=== PATIENT | male | born 1970 | race Caucasian/White ===

== ENCOUNTER 2017-09-26 17:21 | Inpatient (IN) | payer MEDICAID, OTHER ==
[~2017-09-26] VITALS: Ht 175.3 cm; Wt 90.7 kg
[2017-09-26 17:21] VITALS: BP_SYST 148
[~2017-09-26 17:21] MED LIST: AMOX-423 PO; METR500T PO
[2017-09-26] MEDS ORDERED: LEVALBUTEROL HCL 0.63 MG/3 ML VIAL.NEB INH ONE (17:30)
[2017-09-26 17:57] LABS: BASOPHILS # (AUTO) 0.1 K/uL (0.0-0.2); EOSINOPHILS % (AUTO) 0.4 % (0.0-4.0); HEMOGLOBIN 15.4 g/dL (14.0-18.0); LYMPHOCYTES # (AUTO) 2.2 K/uL (1.0-5.5); MEAN CORPUSCULAR HEMOGLOBIN 31 pg (27-31); RED CELL DISTRIBUTION WIDTH 13.5 % (9.0-15.0)
[2017-09-26 17:59] LABS: BASOPHILS % (AUTO) 0.6 % (0.0-2.0); HEMATOCRIT 47.1 % (36-54); LYMPHOCYTES % (AUTO) 18.2 % (20.5-51.5); MEAN CORPUSCULAR HGB CONC 33 % (32-36); MEAN CORPUSCULAR VOLUME 95 fL (79.0-98.0); MONOCYTES # (AUTO) 0.6 K/uL (0.0-1.0); MONOCYTES % (AUTO) 5.1 % (1.7-9.3); NEUTROPHILS # (AUTO) 9.2 K/uL (1.8-7.7); NEUTROPHILS % (AUTO) 75.7 % (40.0-70.0); PLATELET COUNT (AUTO) 261 K/uL (130-430); RED BLOOD CELL COUNT(AUTO) 4.96 MIL/uL (4.2-6.2); WHITE BLOOD COUNT (AUTO) 12.1 K/uL (4.8-10.8)
[2017-09-26 18:19] LABS: CALCIUM 9.1 mg/dL (8.4-11.0); CREATININE 0.93 mg/dL (0.55-1.30)
[2017-09-26 18:29] LABS: ALBUMIN 3.5 g/dL (3.4-4.8); TOTAL BILIRUBIN 2.4 mg/dL (0.0-1.0)
[2017-09-26] MEDS ORDERED: KETOROLAC TROMETHAMINE 30 MG VIAL IVP ONE (18:45)
[2017-09-26] MEDS ORDERED: LORazepam 2 MG/ML VIAL (FOR ER USE) IVP ONE (18:45)
[2017-09-26] MEDS ORDERED: cefTRIAXone 1 GM in D5W 50 ML IV ONE (19:45)
[2017-09-26] MEDS ORDERED: cefTRIAXone 1 GM VIAL ONE (20:03)
[2017-09-26 20:34] LABS: LACTATE DEHYDROGENASE 927 U/L (85-227); LIPASE 51 U/L (73-393)
[2017-09-26 20:34] LABS: BARBITURATE, URINE NEGATIVE (NEG <=200); BENZODIAZEPINE, URINE NEGATIVE (NEG <=150); CANNABINOID, URINE POSITIVE (NEG <=50); COCAINE, URINE NEGATIVE (NEG <=150); METHAMPHETAMINES SCREEN,URINE POSITIVE (NEG <=500); OPIATE, URINE POSITIVE (NEG <=100); PHENCYCLIDINE SCREEN,URINE NEGATIVE (NEG <=25); UR TRICYCLIC ANTIDEPRESSANTS NEGATIVE (NEG <=300); URINE AMPHETAMINE POSITIVE (NEG <=500); URINE METHADONE NEGATIVE (NEG <=200); URINE OXYCODONE SCREEN NEGATIVE (NEG <=100); URINE PROPOXYPHENE SCREEN NEGATIVE (NEG <=300)
[2017-09-26 20:48] VITALS: BP_SYST 150
[2017-09-26] MEDS ORDERED: ACETAMINOPHEN 325 MG TABLET PO PRN (22:30)
[2017-09-26 23:50] VITALS: BP_SYST 150
[2017-09-26] MEDS: ALBUTEROL SULFATE 0.083% 2.5 MG/3 ML VIAL.NEB INH SCH (23:52)
[2017-09-27 00:20] VITALS: BP_SYST 143
[2017-09-27 07:06] LABS: BASOPHILS % (AUTO) 0.2 % (0.0-2.0); EOSINOPHILS # (AUTO) 0.1 K/uL (0.0-0.4); EOSINOPHILS % (AUTO) 0.6 % (0.0-4.0); HEMATOCRIT 46.6 % (36-54); HEMOGLOBIN 15.2 g/dL (14.0-18.0); LYMPHOCYTES # (AUTO) 1.4 K/uL (1.0-5.5); LYMPHOCYTES % (AUTO) 13.2 % (20.5-51.5); MEAN CORPUSCULAR HEMOGLOBIN 31 pg (27-31); MEAN CORPUSCULAR HGB CONC 33 % (32-36); MEAN CORPUSCULAR VOLUME 95 fL (79.0-98.0); MONOCYTES # (AUTO) 0.7 K/uL (0.0-1.0); MONOCYTES % (AUTO) 6.8 % (1.7-9.3); NEUTROPHILS # (AUTO) 8.4 K/uL (1.8-7.7); NEUTROPHILS % (AUTO) 79.2 % (40.0-70.0); PLATELET COUNT (AUTO) 238 K/uL (130-430); RED BLOOD CELL COUNT(AUTO) 4.89 MIL/uL (4.2-6.2); RED CELL DISTRIBUTION WIDTH 13.6 % (9.0-15.0); WHITE BLOOD COUNT (AUTO) 10.6 K/uL (4.8-10.8)
[2017-09-27] MEDS: ALBUTEROL SULFATE 0.083% 2.5 MG/3 ML VIAL.NEB INH SCH ×3 (07:16→19:56)
[2017-09-27 07:43] LABS: ALBUMIN 3.4 g/dL (3.4-4.8); CALCIUM 9.5 mg/dL (8.4-11.0); CREATININE 0.91 mg/dL (0.55-1.30); POTASSIUM 4.8 mmol/L (3.5-5.1); THYROID STIMULATING HORMONE 0.3 uIu/mL (0.34-4.82); TOTAL BILIRUBIN 2.3 mg/dL (0.0-1.0)
[2017-09-27 07:51] LABS: BILIRUBIN,DIRECT 0.9 mg/dL (0.0-0.3)
[2017-09-27 08:00] VITALS: BP_SYST 155
[2017-09-27] MEDS: FAMOTIDINE 20 MG TABLET PO SCH (08:57)
[2017-09-27] MEDS ORDERED: LISINOPRIL 10 MG TABLET (PRINIVIL) PO ONE (09:45)
[2017-09-27 10:59] LABS: INR 1.6 (0.80-1.20)
[2017-09-27 11:14] LABS: PROTHROMBIN TIME 16.2 SECS (9.5-12.5)
[2017-09-27 11:17] LABS: ACETAMINOPHEN < 1 ug/mL (1-30)
[2017-09-27 11:18] LABS: TOTAL IRON BIND. CAPACITY 204 ug/dL (250-450)
[2017-09-27 12:00] VITALS: BP_SYST 157
[2017-09-27] MEDS ORDERED: METOPROLOL TARTRATE 25 MG TABLET PO ONE (14:15)
[2017-09-27] MEDS ORDERED: IOHEXOL 350 mgI/mL, 150 ML INFUS..BTL IV ONE (15:17)
[2017-09-27 17:06] VITALS: BP_SYST 162
[2017-09-27 19:10] VITALS: BP_SYST 123
[2017-09-27] MEDS ORDERED: FUROSEMIDE 40 MG/4 ML VIAL IVP ONE (20:30)
[2017-09-27] MEDS: LACTULOSE 20 GM/30 ML UDC PO SCH (21:24)
[2017-09-27] MEDS: cefTRIAXone 1 GM in D5W 50 ML IV SCH (21:24)
[2017-09-27] MEDS: METOPROLOL TARTRATE 25 MG TABLET PO SCH (21:25)
[2017-09-27] MEDS: LISINOPRIL 10 MG TABLET (PRINIVIL) PO SCH (21:26)
[2017-09-27 23:45] VITALS: BP_SYST 142
[2017-09-28] MEDS: ALBUTEROL SULFATE 0.083% 2.5 MG/3 ML VIAL.NEB INH SCH ×4 (01:12→21:05)
[2017-09-28 07:01] LABS: BASOPHILS # (AUTO) 0.1 K/uL (0.0-0.2); BASOPHILS % (AUTO) 0.6 % (0.0-2.0); EOSINOPHILS # (AUTO) 0.1 K/uL (0.0-0.4); EOSINOPHILS % (AUTO) 1.3 % (0.0-4.0); HEMATOCRIT 44.5 % (36-54); HEMOGLOBIN 14.9 g/dL (14.0-18.0); LYMPHOCYTES # (AUTO) 1.5 K/uL (1.0-5.5); LYMPHOCYTES % (AUTO) 15.8 % (20.5-51.5); MEAN CORPUSCULAR HEMOGLOBIN 32 pg (27-31); MEAN CORPUSCULAR HGB CONC 34 % (32-36); MEAN CORPUSCULAR VOLUME 95 fL (79.0-98.0); MONOCYTES # (AUTO) 0.6 K/uL (0.0-1.0); MONOCYTES % (AUTO) 6.4 % (1.7-9.3); NEUTROPHILS # (AUTO) 7.4 K/uL (1.8-7.7); NEUTROPHILS % (AUTO) 75.9 % (40.0-70.0); PLATELET COUNT (AUTO) 257 K/uL (130-430); RED BLOOD CELL COUNT(AUTO) 4.68 MIL/uL (4.2-6.2); RED CELL DISTRIBUTION WIDTH 13.3 % (9.0-15.0); WHITE BLOOD COUNT (AUTO) 9.7 K/uL (4.8-10.8)
[2017-09-28 07:21] LABS: ALBUMIN 3.2 g/dL (3.4-4.8); BILIRUBIN,DIRECT 0.6 mg/dL (0.0-0.3); CALCIUM 9.1 mg/dL (8.4-11.0); CREATININE 1.19 mg/dL (0.55-1.30); POTASSIUM 3.2 mmol/L (3.5-5.1); TOTAL BILIRUBIN 1.3 mg/dL (0.0-1.0)
[2017-09-28 08:38] VITALS: BP_SYST 151
[2017-09-28] MEDS: LACTULOSE 20 GM/30 ML UDC PO SCH ×2 (08:40→20:31)
[2017-09-28] MEDS: METOPROLOL TARTRATE 25 MG TABLET PO SCH (08:41)
[2017-09-28] MEDS: LISINOPRIL 10 MG TABLET (PRINIVIL) PO SCH ×2 (08:41→20:34)
[2017-09-28] MEDS: FAMOTIDINE 20 MG TABLET PO SCH (08:42)
[2017-09-28 08:54] LABS: AFP, TUMOR MARKER 1.1 ng/mL (0.0-8.3)
[2017-09-28] MEDS ORDERED: FUROSEMIDE 40 MG TABLET PO ONE (10:15)
[2017-09-28] MEDS ORDERED: POTASSIUM CHLORIDE 20 MEQ TAB.PRT.SR PO ONE (10:15)
[2017-09-28] MEDS ORDERED: CARVEDILOL 12.5 MG TABLET (COREG) PO ONE (10:15)
[2017-09-28 13:07] VITALS: BP_SYST 134
[2017-09-28 13:37] LABS: HEPATITIS A AB, IgM Negative (Negative); HEPATITIS B CORE AB, IgM Negative (Negative); HEPATITIS B SURFACE AG Negative (Negative)
[2017-09-28 16:22] VITALS: BP_SYST 126
[2017-09-28 19:05] VITALS: BP_SYST 136
[2017-09-28] MEDS: cefTRIAXone 1 GM in D5W 50 ML IV SCH (20:31)
[2017-09-28] MEDS: CARVEDILOL 12.5 MG TABLET (COREG) PO SCH (20:32)
[2017-09-28] MEDS: FUROSEMIDE 40 MG TABLET PO SCH (20:33)
[2017-09-28] MEDS: POTASSIUM CHLORIDE 20 MEQ TAB.PRT.SR PO SCH (20:34)
[2017-09-29 00:34] VITALS: BP_SYST 114
[2017-09-29] MEDS: ALBUTEROL SULFATE 0.083% 2.5 MG/3 ML VIAL.NEB INH SCH ×3 (01:00→13:45)
[2017-09-29 07:07] LABS: BASOPHILS % (AUTO) 0.4 % (0.0-2.0); EOSINOPHILS # (AUTO) 0.2 K/uL (0.0-0.4); EOSINOPHILS % (AUTO) 2.6 % (0.0-4.0); HEMATOCRIT 43.2 % (36-54); HEMOGLOBIN 14.4 g/dL (14.0-18.0); LYMPHOCYTES # (AUTO) 1.5 K/uL (1.0-5.5); LYMPHOCYTES % (AUTO) 17.7 % (20.5-51.5); MEAN CORPUSCULAR HEMOGLOBIN 32 pg (27-31); MEAN CORPUSCULAR HGB CONC 33 % (32-36); MEAN CORPUSCULAR VOLUME 95 fL (79.0-98.0); MONOCYTES # (AUTO) 0.7 K/uL (0.0-1.0); MONOCYTES % (AUTO) 8.5 % (1.7-9.3); NEUTROPHILS # (AUTO) 6.1 K/uL (1.8-7.7); NEUTROPHILS % (AUTO) 70.8 % (40.0-70.0); PLATELET COUNT (AUTO) 249 K/uL (130-430); RED BLOOD CELL COUNT(AUTO) 4.53 MIL/uL (4.2-6.2); RED CELL DISTRIBUTION WIDTH 13.6 % (9.0-15.0); WHITE BLOOD COUNT (AUTO) 8.5 K/uL (4.8-10.8)
[2017-09-29 07:17] LABS: INR 1.3 (0.80-1.20); PROTHROMBIN TIME 12.7 SECS (9.5-12.5)
[2017-09-29 07:33] LABS: ALBUMIN 3.3 g/dL (3.4-4.8); BILIRUBIN,DIRECT 0.4 mg/dL (0.0-0.3); CALCIUM 8.6 mg/dL (8.4-11.0); CREATININE 1.16 mg/dL (0.55-1.30); POTASSIUM 3.7 mmol/L (3.5-5.1); TOTAL BILIRUBIN 0.6 mg/dL (0.0-1.0)
[2017-09-29 07:55] VITALS: BP_SYST 120
[2017-09-29] MEDS: LACTULOSE 20 GM/30 ML UDC PO SCH (08:45)
[2017-09-29] MEDS: FAMOTIDINE 20 MG TABLET PO SCH (08:45)
[2017-09-29] MEDS: CARVEDILOL 12.5 MG TABLET (COREG) PO SCH (08:46)
[2017-09-29] MEDS: LISINOPRIL 10 MG TABLET (PRINIVIL) PO SCH (08:46)
[2017-09-29] MEDS: POTASSIUM CHLORIDE 20 MEQ TAB.PRT.SR PO SCH (08:46)
[2017-09-29] MEDS: FUROSEMIDE 40 MG TABLET PO SCH (08:47)
[2017-09-29] MEDS ORDERED: ALPRAZolam 0.25 MG TABLET PO ONE (09:30)
[2017-09-29 11:30] VITALS: BP_SYST 149
[2017-09-29 13:39] VITALS: BP_SYST 149
[2017-09-29] MEDS ORDERED: LISI-600 PO (13:47)
[2017-09-29] MEDS ORDERED: FURO-149 PO (13:48)
[2017-09-29] MEDS ORDERED: CARV12.548 PO (13:48)
[2017-09-29] MEDS ORDERED: POTA20TA83 PO (13:50)
[2017-09-29 14:17] LABS: CERULOPLASMIN 33.1 mg/dL (16.0-31.0)
[2017-09-30 13:50] LABS: LIVER-KIDNEY MICROSOMAL AB 2.3 Units (0.0-20.0)
== END 2017-09-29 14:20 | disposition home or self-care (01) | DRG 292 ==
LOC: SED 17:21 → STU 20:10 → SMU 09-27 13:34 → STU 09-27 19:23
PROVIDERS: ADMIT Internal Medicine; ATTEND Internal Medicine
DX: I11.0 Hypertensive heart disease with heart failure (principal); B17.9 Acute viral hepatitis, unspecified; I27.20 Pulmonary hypertension, unspecified; I42.0 Dilated cardiomyopathy; I50.9 Heart failure, unspecified; F41.9 Anxiety disorder, unspecified; J20.9 Acute bronchitis, unspecified; E87.6 Hypokalemia; I34.0 Nonrheumatic mitral (valve) insufficiency; F15.90 Other stimulant use, unspecified, uncomplicated; Z90.49 Acquired absence of other specified parts of digestive tract; Z79.899 Other long term (current) drug therapy; Z82.49 Family history of ischemic heart disease and other diseases of the circulatory system
CPT/HCPCS: 36415; 36600; 71045; 71275; 76700-TC; 78226; 80048; 80053; 80061; 80074; 80076; 80307; 82103; 82105; 82140-TC; 82248-TC; 82390; 82728; 82803-TC; 83516; 83540-TC; 83550-TC; 83605; 83615-TC; 83690-TC; 83880; 84439; 84443-TC; 84484; 85025; 85379; 85610-TC; 86038; 86376; 87040-TC; 93005; 93306; 93970; 94640; 94760; 96365; 96375; 99285; A9537; G0480; G0481; J0696; J1885; J1940; J2060; J7040; J7060; Q9967